=== PATIENT | female | born 1970 | race Caucasian/White ===

== ENCOUNTER 2021-11-24 07:31 | Observation (INO) | payer BC ==
[2021-11-24] MEDS ORDERED: ONDANSETRON 4 MG/2 ML VIAL ONE ×2 (07:50→08:11)
[2021-11-24] MEDS ORDERED: MORPHINE 4 MG/ML SYR ONE (07:50)
[2021-11-24] MEDS ORDERED: ASPIRIN 81 MG CHEWABLE TABLET ONE (07:50)
[2021-11-24] MEDS ORDERED: FENTANYL CITR 100 MCG/2 ML ONE (08:11)
[2021-11-24 08:23] LABS: Absolute Lymphocytes (CBC) 2.6 K/uL (0.7-4.9); Hematocrit 44.9 % (36.0-45.0); Lymphocytes % 29.1 % (15.3-44.8); MPV 6.1 fL (7.6-11.3); RBC Red Blood Cell Count 4.83 M/uL (3.86-4.86)
--- NOTE | 2021-11-24 08:27 | RAD REPORT ---
EXAM DESCRIPTION: RAD - Chest Single View - 11/24/2021 8:20 am CLINICAL HISTORY: CHEST PAINleft-side COMPARISON: None TECHNIQUE: AP portable chest image was obtained 11/24/2021 8:20 am . FINDINGS: Lungs are clear. Heart and vasculature are normal. No measurable pleural effusion and no p neumothorax. No acute bony abnormality seen. No acute aortic findings suspected. IMPRESSION: No acute cardiopulmonary process.
[2021-11-24 08:32] LABS: Protime INR 0.96
[2021-11-24 09:04] LABS: Albumin 3.7 g/dL (3.4-5.0); Bilirubin Direct 0.1 mg/dL (0-0.2); Bilirubin Total 0.3 mg/dL (0.2-1.0); Magnesium 2.1 mg/dL (1.8-2.4); Potassium 4.4 mmol/L (3.5-5.1); Protein, Total 6.8 g/dL (6.4-8.2); Troponin High Sensitivity 5.9 pg/mL (<58.9)
[2021-11-24 09:06] LABS: SARS-CoV-2 Antigen Rapid Res Negative (Negative)
--- NOTE | 2021-11-24 10:43 | ER ---
Nurse's Notes [facility] Name: Juliann Cobian Age: 51 yrs Sex: Female : 1970 Arrival Date: 11/24/2021 Time: 07:33 Bed 2 Private MD: Diagnosis: Chest pain, unspecified;Essential (primary) hypertension;Obesity, unspecified;Tobacco abuse counseling;Tobacco use Presentation: 11/24 07:45 Chief complaint: Patient states: LEFT CP SINCE WAKING AT 0520. Coronavirus screen: At bp this time, the client does not indicate any symptoms associated with coronavirus-19. Ebola Screen: No symptoms or risks identified at this time. Initial Sepsis Screen: Does the patient meet any 2 criteria? No. Patient's initial sepsis screen is negative. Does the patient have a suspected source of infection? No. Patient's initial sepsis screen is negative. Risk Assessment: Do you want to hurt yourself or someone else? Patient reports no desire to harm self or others. Onset of symptoms was November 24, 2021 at 05:20. 07:45 Method Of Arrival: Ambulatory bp 07:45 Acuity: ASHLEY 3 bp Triage Assessment: 07:45 General: Appears distressed, obese, Behavior is cooperative, appropriate for age, bp anxious. Pain: Complains of pain in left lateral anterior chest. EENT: No deficits noted. Neuro: No deficits noted. Cardiovascular: Rhythm is sinus rhythm. Respiratory: No deficits noted. GI: No signs and/or symptoms were reported involving the gastrointestinal system. : No signs and/or symptoms were reported regarding the genitourinary system. Derm: No deficits noted. Musculoskeletal: No deficits noted. - Immunization history:: Adult Immunizations up to date. - Social history:: Smoking status: Patient reports the use of cigarette tobacco products, unknown amount. - Family history:: Father has/had heart disease. - Hospitalizations: : No recent hospitalization is reported. Screenin:45 Abuse screen: Denies threats or abuse. Denies injuries from another. Nutritional bp screening: No deficits noted. Tuberculosis screening: No symptoms or risk factors identified. Fall Risk None identified. Assessment: 07:45 General: SEE TRIAGE NOTE. bp 09:45 Reassessment: No changes from previously documented assessment. Patient and/or family bp updated on plan of care and expected duration. Pain level reassessed. 10:53 Reassessment: ADMIT INITIATED. bp Vital Signs: 07:45 BP 154 / 102; Pulse 59; Resp 16; Temp 98; Pulse Ox 98% ; Weight 103.42 kg; Height 5 ft. bp 7 in. (170.18 cm); 09:45 BP 153 / 80; Pulse 63; Resp 16; Pulse Ox 99% ; bp 10:45 BP 154 / 85; Pulse 76; Resp 16; Pulse Ox 95% ; bp 07:45 Body Mass Index 35.71 (103.42 kg, 170.18 cm) bp ED Course: 07:33 Patient arrived in ED. am2 07:37 Tyrell Lance, HEATHER is Primary Nurse. bp 07:39 Reggie Gallardo MD is Attending Physician. gary 07:45 No provider procedures requiring assistance completed. Patient maintains SpO2 bp saturation greater than 95% on room air. 07:45 Patient has correct armband on for positive identification. Bed in low position. Call bp light in reach. Side rails up X2. Client placed on continuous cardiac and pulse oximetry monitoring. NIBP monitoring applied. 08:05 Inserted saline lock: 22 gauge in right wrist, using aseptic technique. bp 08:07 Triage completed. bp 10:41 Owen Moseley MD is Hospitalizing Provider. gary 10:48 CT Head Brain wo Cont In Process Unspecified. EDMS 10:56 Heath Chaney is Hospitalizing Provider. gary 17:18 IV discontinued. bp Administered Medications: 08:00 Drug: Aspirin Chewable Tablet 324 mg Route: PO; bp 08:08 CANCELLED (Other Intervention Used): morphine 4 mg IVP once over 4 mins bp 08:10 Drug: Zofran (Ondansetron) 4 mg Route: IVP; Site: right wrist; bp 09:53 Follow up: Response: No adverse reaction bp 08:10 Drug: fentaNYL (PF) 50 mcg Route: IVP; Site: right wrist; bp 09:53 Follow up: Response: Pain is decreased bp 11:00 Drug: Lovenox (enoxaparin) 1 mg/kg Route: Sub-Q; Site: right lower abdomen; bp 11:00 Drug: Pepcid (famotidine) 20 mg Route: IVP; Site: right wrist; bp 11:00 Drug: Lopressor (metoprolol TARTRATE) 50 mg Route: PO; bp Medication: 07:45 VIS not applicable for this client. bp Outcome: 10:42 Decision to Hospitalize by Provider. gary 17:18 Discharged to home ambulatory. bp 17:18 Condition: stable 17:18 Discharge instructions given to patient, Instructed on discharge instructions, follow up and referral plans. Demonstrated understanding of instructions, follow-up care. 17:19 Patient left the ED. bp Signatures: Dispatcher [employer] EDDE Reggie Gallardo MD MD cha Moreno, Amanda [facility] Tyrell Lance, HEATHER RN bp Corrections: (The following items were deleted from the chart) 10:52 07:45 BP 154 / 102; Pulse 59bpm; Resp 16bpm; Pulse Ox 98%; Temp 98F; bp bp
--- NOTE | 2021-11-24 10:44 | EDPHYS ---
Physician Documentation [facility] Name: Juliann Cobian Age: 51 yrs Sex: Female : 1970 Arrival Date: 11/24/2021 Time: 07:33 Bed 2 Private MD: ED Physician Reggie Gallardo HPI: 11/24 10:36 This 51 yrs old Female presents to ER via Ambulatory with complaints of Chest gary Pain - left side, Shoulder Pain, facial tingling, Nausea. 10:36 The patient or guardian reports chest pain that is located primarily in the substernal gary area, anterior chest wall, left. Onset: just prior to arrival, this morning. The pain radiates to left lateral anterior chest. Associated signs and symptoms: Pertinent positives: diaphoresis, lightheadedness, shortness of breath. The chest pain is described as a heaviness, a pressure. Duration: The patient or guardian reports multiple episodes, that are intermittent. Modifying factors: The symptoms are alleviated by nothing. the symptoms are aggravated by nothing. Severity of pain: At its worst the pain was moderate in the emergency department the pain has resolved and did so just prior to arrival. The patient has not experienced similar symptoms in the past. - Immunization history:: Adult Immunizations up to date. - Social history:: Smoking status: Patient reports the use of cigarette tobacco products, unknown amount. - Family history:: Father has/had heart disease. - Hospitalizations: : No recent hospitalization is reported. ROS: 10:36 Constitutional: Negative for fever, chills, and weight loss, Eyes: Negative for injury, gary pain, redness, and discharge, ENT: Negative for injury, pain, and discharge, Neck: Negative for injury, pain, and swelling, Abdomen/GI: Negative for abdominal pain, nausea, vomiting, diarrhea, and constipation, Back: Negative for injury and pain, : Negative for injury, bleeding, discharge, and swelling, MS/Extremity: Negative for injury and deformity, Skin: Negative for injury, rash, and discoloration, Neuro: Negative for headache, weakness, numbness, tingling, and seizure, Psych: Negative for depression, anxiety, suicide ideation, homicidal ideation, and hallucinations, Allergy/Immunology: Negative for hives, rash, and allergies, Endocrine: Negative for neck swelling, polydipsia, polyuria, polyphagia, and marked weight changes, Hematologic/Lymphatic: Negative for swollen nodes, abnormal bleeding, and unusual bruising. 10:36 Cardiovascular: Positive for chest pain, of the chest. 10:36 Respiratory: Positive for shortness of breath, at rest. Exam: 10:36 Constitutional: This is a well developed, well nourished patient who is awake, alert, gary and in no acute distress. Head/Face: Normocephalic, atraumatic. Eyes: Pupils equal round and reactive to light, extra-ocular motions intact. Lids and lashes normal. Conjunctiva and sclera are non-icteric and not injected. Cornea within normal limits. Periorbital areas with no swelling, redness, or edema. ENT: Nares patent. No nasal discharge, no septal abnormalities noted. Tympanic membranes are normal and external auditory canals are clear. Oropharynx with no redness, swelling, or masses, exudates, or evidence of obstruction, uvula midline. Mucous membranes moist. Neck: Trachea midline, no thyromegaly or masses palpated, and no cervical lymphadenopathy. Supple, full range of motion without nuchal rigidity, or vertebral point tenderness. No Meningismus. Chest/axilla: Normal chest wall appearance and motion. Nontender with no deformity. No lesions are appreciated. Cardiovascular: Regular rate and rhythm with a normal S1 and S2. No gallops, murmurs, or rubs. Normal PMI, no JVD. No pulse deficits. Respiratory: Lungs have equal breath sounds bilaterally, clear to auscultation and percussion. No rales, rhonchi or wheezes noted. No increased work of breathing, no retractions or nasal flaring. Abdomen/GI: Soft, non-tender, with normal bowel sounds. No distension or tympany. No guarding or rebound. No evidence of tenderness throughout. Back: No spinal tenderness. No costovertebral tenderness. Full range of motion. Skin: Warm, dry with normal turgor. Normal color with no rashes, no lesions, and no evidence of cellulitis. MS/ Extremity: Pulses equal, no cyanosis. Neurovascular intact. Full, normal range of motion. Neuro: Awake and alert, GCS 15, oriented to person, place, time, and situation. Cranial nerves II-XII grossly intact. Motor strength 5/5 in all extremities. Sensory grossly intact. Cerebellar exam normal. Normal gait. Psych: Awake, alert, with orientation to person, place and time. Behavior, mood, and affect are within normal limits. 10:36 ECG was reviewed by the Attending Physician. Vital Signs: 07:45 BP 154 / 102; Pulse 59; Resp 16; Temp 98; Pulse Ox 98% ; Weight 103.42 kg; Height 5 ft. bp 7 in. (170.18 cm); 09:45 BP 153 / 80; Pulse 63; Resp 16; Pulse Ox 99% ; bp 10:45 BP 154 / 85; Pulse 76; Resp 16; Pulse Ox 95% ; bp 07:45 Body Mass Index 35.71 (103.42 kg, 170.18 cm) bp MDM: 07:39 Patient medically screened. gary 10:39 Differential diagnosis: abnormal EKG, acute myocardial infarction, acute pericarditis, gary anxiety, coronary artery disease Cholelithiasis gastroesophageal reflux disease (GERD), hiatal hernia, pancreatitis, peptic ulcer disease, pulmonary embolus, stable angina, unstable angina. HEART Score: History: Moderately Suspicious (1), ECG: Normal (0), Age: > 45 and < 65 years (1), Risk Factors: > or = 3 Risk factors for atherosclerotic disease (2), [Hypertension] [Active Smoker] [+ Family HX] [Obesity] Troponin: < or = 1 x Normal Limit (0). The patient was given aspirin in the Emergency Department. The patient's deep vein thrombosis risk score was calculated as follows: Total Score: 0. This patient was found to be at low risk for a deep vein thrombosis by using the Well's assessment criteria. The patient's pulmonary embolism risk score was calculated as follows: Total Score: 3-6 points. This patient was found to be at moderate risk for a pulmonary embolism by using the Well's assessment criteria. VELVET Risk Score: 1 - Three or more CAD risk factors, TOTAL SCORE = 1. Data reviewed: vital signs, nurses notes, lab test result(s), EKG, radiologic studies, CT scan, plain films. Data interpreted: library monitor: rate is 63 beats/min, rhythm is regular, Pulse oximetry: on room air is 99 %. Test interpretation: by ED physician or midlevel provider: ECG, plain radiologic studies. Counseling: I had a detailed discussion with the patient and/or guardian regarding: the historical points, exam findings, and any diagnostic results supporting the discharge/admit diagnosis, the presence of at least one elevated blood pressure reading (>120/80) during this emergency department visit, lab results, radiology results, the need for further work-up and treatment in the hospital. 11/24 07:47 Order name: Basic Metabolic Panel; Complete Time: 09:54 [facility] 11/24 07:47 Order name: CBC with Diff [facility] 11/24 07:47 Order name: LFT's; Complete Time: 09:54 [facility] 11/24 07:47 Order name: Magnesium; Complete Time: 09:54 [facility] 11/24 07:47 Order name: NT PRO-BNP; Complete Time: 09:54 [facility] 11/24 07:47 Order name: PT-INR [facility] 11/24 07:47 Order name: Troponin HS; Complete Time: 09:54 [facility] 11/24 07:47 Order name: SARS RAPID; Complete Time: 09:54 [facility] 11/24 07:47 Order name: D-Dimer [facility] 11/24 08:24 Order name: CBC with Automated Diff; Complete Time: 09:54 [facility] 11/24 08:32 Order name: Protime (+INR); Complete Time: 09:54 [facility] 11/24 08:32 Order name: D-Dimer; Complete Time: 09:54 [facility] 11/24 10:36 Order name: Lipid Profile [facility] 11/24 11:26 Order name: Creatine Phosphokinase [facility] 11/24 07:47 Order name: XRAY Chest (1 view) [facility] 11/24 11:26 Order name: Magnesium [facility] 11/24 11:26 Order name: NT PRO-BNP [facility] 11/24 11:26 Order name: Phosphorus [facility] 11/24 11:26 Order name: Protime (+INR) [facility] 11/24 11:26 Order name: T4 Free [facility] 11/24 11:26 Order name: Thyroid Stimulating Hormone [facility] 11/24 11:26 Order name: Urinalysis [facility] 11/24 11:26 Order name: Basic Metabolic Panel [facility] 11/24 11:26 Order name: Basic Metabolic Panel [facility] 11/24 11:26 Order name: CBC with Automated Diff [facility] 11/24 11:26 Order name: CBC with Automated Diff [facility] 11/24 11:29 Order name: Hemoglobin A1c [facility] 11/24 11:33 Order name: Troponin High Sensitivity [facility] 11/24 11:33 Order name: Troponin High Sensitivity [facility] 11/24 11:33 Order name: Troponin High Sensitivity [facility] 11/24 07:47 Order name: EKG; Complete Time: 07:48 [facility] 11/24 07:47 Order name: Cardiac monitoring; Complete Time: 08:08 [facility] 11/24 07:47 Order name: EKG - Nurse/Tech; Complete Time: 08:08 [facility] 11/24 07:47 Order name: IV Saline Lock; Complete Time: 08:08 [facility] 11/24 07:47 Order name: Labs collected and sent; Complete Time: 08:08 [facility] 11/24 07:47 Order name: O2 Per Protocol; Complete Time: 08:08 [facility] 11/24 07:47 Order name: O2 Sat Monitoring; Complete Time: 08:08 [facility] 11/24 08:28 Order name: RAD; Complete Time: 09:54 [facility] 11/24 08:30 Order name: Labs - recollect needed: recollect green top; Complete Time: 08:47 11/24 10:35 Order name: CT Head Brain wo Cont [facility] 11/24 11:26 Order name: Heart Healthy [facility] 11/24 11:33 Order name: Echo with Doppler EDMS EC:36 Rate is 66 beats/min. Rhythm is regular. QRS [place] is Normal. ID interval is normal. QRS gary interval is normal. QT interval is normal. No Q waves. T waves are Normal. No ST changes noted. Clinical impression: Normal ECG and No evidence of ischemia. Interpreted by me. Reviewed by me. Administered Medications: 08:00 Drug: Aspirin Chewable Tablet 324 mg Route: PO; bp 08:08 CANCELLED (Other Intervention Used): morphine 4 mg IVP once over 4 mins bp 08:10 Drug: Zofran (Ondansetron) 4 mg Route: IVP; Site: right wrist; bp 09:53 Follow up: Response: No adverse reaction bp 08:10 Drug: fentaNYL (PF) 50 mcg Route: IVP; Site: right wrist; bp 09:53 Follow up: Response: Pain is decreased bp 11:00 Drug: Lovenox (enoxaparin) 1 mg/kg Route: Sub-Q; Site: right lower abdomen; bp 11:00 Drug: Pepcid (famotidine) 20 mg Route: IVP; Site: right wrist; bp 11:00 Drug: Lopressor (metoprolol TARTRATE) 50 mg Route: PO; bp Disposition Summary: 11/24/21 10:42 Hospitalization Ordered Hospitalization Status: Observation gary Location: Telemetry/MedSurg (observation) gary Condition: Fair gary Problem: new gary Symptoms: have improved gary Bed/Room Type: Standard gary Provider: Heath Chaney(11/24/21 10:56) gary Room Assignment: (11/24/21 17:10) bd Diagnosis - Chest pain, unspecified gary - Essential (primary) hypertension gary - Obesity, unspecified gary - Tobacco abuse counseling gary - Tobacco use gary Forms: - Medication Reconciliation Form gary - SBAR form gary Signatures: Dispatcher [employer] EDMS Carol Li Corey, MD MD cha Peltier, Brian RN RN bp Corrections: (The following items were deleted from the chart) 08:08 07:49 morphine 4 mg IVP once over 4 mins ordered. gary bp 10:56 10:42 Owen Moseley cha gary 16:21 10:42 gary bd 17:10 16:21 407 bd bd
--- NOTE | 2021-11-24 10:52 | RAD REPORT ---
EXAM DESCRIPTION: CT - Head Brain Wo Cont - 11/24/2021 10:46 am CLINICAL HISTORY: Headache, new or worsening COMPARISON: No comparisons TECHNIQUE: Axial 5 mm thick images of the head were obtained without IV contrast. All CT scans are performed using dose optimization technique as appropriate and may include automated exposure control or mA/KV adjustment according to patient size. FINDINGS: No intracranial hemorrhage, mass, edema or shift of mid-line structures. No acute infarcti on changes seen. No abnormal extra-axial fluid collections. No cortical edema or sulcal effacement. N o atrophy changes are present. Ventricles are normal size. Patient does appear to have some minimal w zhane matter hypodensities that could be early chronic ischemic change. This is a subtle finding with no associated mass effect. Mastoid air cells are clear. Trace amount mucosal thickening seen along the posterior floor left maxi llary sinus. No acute bony findings. IMPRESSION: No acute intracranial finding identifiable. No significant paranasal sinus abnormality.
[2021-11-24] MEDS ORDERED: METOPROLOL TAR 50 MG TAB ONE (10:55)
[2021-11-24] MEDS ORDERED: ENOXAPARIN 100 MG/ML SYR SQ ONE (10:55)
[2021-11-24] MEDS ORDERED: FAMOTIDINE 20 MG/2 ML VIAL IV ONE (10:56)
[2021-11-24] MEDS ORDERED: ONDANSETRON 4 MG/2 ML VIAL IV PRN (11:23)
[2021-11-24] MEDS ORDERED: HYDROCODONE/APAP 10/325 TAB PO PRN (11:26)
[2021-11-24] MEDS ORDERED: ACETAMINOPHEN 325 MG TABLET PO PRN (11:26)
--- NOTE | 2021-11-24 11:35 | P.HP ---
Patient History Date of Service: 11/24/21 Physical Examination - Studies Laboratory Data (last 24 hrs) 11/24/21 08:37: Sodium 138, Potassium 4.4, BUN 19 H, Creatinine 0.77, Glucose 123 H, Magnesium 2.1, Total Bilirubin 0.3, AST 12 L, ALT 23, Alkaline Phosphatase 64 11/24/21 08:00: PT 10.6, INR 0.96 11/24/21 08:00: WBC 9.00, Hgb 15.0, Hct 44.9, Plt Count 314 Assessment and Plan - Advance Directives Does patient have a Living Will: No Does patient have a Durable POA for Healthcare: No
[2021-11-24 13:30] VITALS: O2SAT 99
[2021-11-24 14:07] LABS: Protime INR 1.11
[2021-11-24 14:16] LABS: Magnesium 1.9 mg/dL (1.8-2.4); Thyroid Stimulating Hormone 1.9 uIU/mL (0.360-3.740)
--- NOTE | 2021-11-24 17:07 | P.SSS ---
Patient History Date of Service: 11/24/21 History of Present Illness: Patient is a 51-year-old female with a past medical history significant for nicotine dependence, chronic pain syndrome, obesity, hypertension who presents with complaint of chest pain that has been ongoing intermittently for quite some time. Patient reported that she woke up this morning and started having chest pain in the substernal chest area. Patient rated pain as 7/10 in severity and described pain as tightness in quality. Patient reported associated signs and symptoms of diaphoresis, nausea, headache, cough and blurry vision. Patient denies any other signs and symptoms. Symptoms are aggravated or relieved by nothing. Patient decided to present to the hospital due to worsening symptoms. Allergies ampicillin Allergy (Verified 11/24/21 11:50) UNK clarithromycin Allergy (Verified 11/24/21 11:50) UNK morphine Allergy (Verified 11/24/21 11:50) UNK - Past Medical/Surgical History -: Nicotine dependence -: Obesity -: Chronic pain syndrome -: hypertension -: Neck/back surgeries - Family History Mother -: Cancer Father -: Heart disease - Social History Smoking Status: Current every day smoker Counseled patient to stop smoking for: less than 10 minutes Smoking therapy provided: Yes Patient receptive to therapy: Yes Alcohol use: Yes CD- Drugs: No Caffeine use: Yes Place of Residence: Home Review of Systems General: Sweats Eyes: Other (Blurry vision ) ENT: Unremarkable Respiratory: Cough Cardiovascular: Chest Pain, Other (Dizziness ) Gastrointestinal: Nausea Genitourinary: Unremarkable Musculoskeletal: Neck Pain, Back Pain Integumentary: Unremarkable Neurological: Other (Headache ) Lymphatics: Unremarkable Physical Examination - Physical Exam General: Alert, In no apparent distress, Oriented x3 HEENT: Atraumatic, PERRLA, Mucous membr. moist/pink, EOMI, Sclerae nonicteric Neck: Supple, 2+ carotid pulse no bruit, No LAD, Without JVD or thyroid abnormality Respiratory: Clear to auscultation bilaterally, Normal air movement Cardiovascular: No edema, Regular rate/rhythm, Normal S1 S2 Capillary refill: <2 Seconds Gastrointestinal: Normal bowel sounds, Soft and benign, No tenderness Musculoskeletal: No clubbing, No swelling, No tenderness Integumentary: No rashes, No significant lesion Neurological: Normal gait, Normal speech, Normal strength at 5/5 x4 extr, Normal tone, Normal affect Lymphatics: No axilla or inguinal lymphadenopathy - Studies Laboratory Data (last 24 hrs) 11/24/21 08:37: Sodium 138, Potassium 4.4, BUN 19 H, Creatinine 0.77, Glucose 123 H, Magnesium 2.1, Total Bilirubin 0.3, AST 12 L, ALT 23, Alkaline Phosphatase 64 11/24/21 08:00: PT 10.6, INR 0.96 11/24/21 08:00: WBC 9.00, Hgb 15.0, Hct 44.9, Plt Count 314 Treatment Summary: Patient is a 51-year-old female with past medical history significant for hypertension, obesity, nicotine dependence who presented with complaint of chest pain. Serial troponins was ordered and trended. Residence Counselor was consulted and echocardiogram ordered. Patient was advised on smoking cessation. Patient refused nicotine patch. Patient's blood pressure was adequately managed. Patient was placed on Tylenol for headache as well as antiemetics for nausea. Patient was seen by marketing services manager and cardiology indicated that patient can be discharged home once the second troponin level was negative. Second troponin level was negative and less than the previous level. Residence Counselor cleared patient for discharge and indicated that patient should follow up outpatient with him for a stress test. Patient instructed to follow-up with her PCP and marketing services manager. Patient verbalized understand discharge instructions and was discharged in stable condition. - Disposition Discharge Date: 11/24/21 Disposition: ROUTINE DISCHARGE Condition: GOOD Consultations: Cardiology Diet: Heart Heal Activity: Fall precautions Physician Review: Patient Assessed, Agree with Above Assessment and Plan Critical Care: No Time Spent Managing Pts Care (In Minutes): 50
[2021-11-24 17:28] VITALS: TEMP 98
[2021-11-24 17:39] VITALS: BP 154/85
--- NOTE | 2021-11-24 18:31 | CON ---
Date of Consultation: 11/24/2021 Reason For Consultation: Chest pain. History Of Present Illness: This is a 51-year-old female, presented to the emergency room with chest pain. It is on the left side, that goes to the left upper extremity and increased with movements. Upon arrival, pain was 8/10 and then gradually improved. She does have history of hypertension and s mokes on a regular basis, but no other medical problems. At the time of evaluation, pain was very mi ld, it is reproducible to a point by putting pressure on the chest wall muscles. Denies having any n ausea, vomiting, diarrhea, or diaphoresis. Past Medical History: Hypertension. Medications: Refer to reconciliation sheet for detailed list. Allergies: PENICILLIN, CLARITHROMYCIN, AND MORPHINE. Family History: No premature coronary artery disease or cancer. Social History: Smokes. Does not drink or use any drugs. Review of Systems: All systems reviewed and they were negative except for what mentioned in HPI. Physical Examination: Vital Signs: Reviewed. Head and Neck: Pupils are equal, reactive to light. Intact eye movements. No JVD. No cervical lym phadenopathy. Neck is supple. Thyroid is not enlarged. Lungs: Clear to auscultation bilaterally. No rhonchi, wheezing, or crackles. No accessory muscle u se. Heart: Regular rate and rhythm. No extra sounds. Abdomen: Soft, nontender. Bowel sounds positive. No organomegaly. No masses or hernia. No rigidi ty or rebound. Extremities: No edema, clubbing, or cyanosis. Intact pulses. Skin: No rash. Neurologic: Alert, awake, oriented x3. No acute focal deficits appreciated. Investigations: EKG; no acute specific abnormalities. Hemoglobin is 15. The D-dimer is 409 and BUN is 19, creatinine 0.77. Troponin 2 sets with 6 hours apart were totally negative. Assessment And Recommendations: 1.Chest pain that is atypical. Cardiac enzymes are negative. Myocardial infarction was ruled out. Echocardiogram was done. Ejection fraction is normal. No wall motion abnormalities. From Cardiolo gy standpoint, the patient can be released and to follow up with me in the office as an outpatient. We will plan for an exercise stress test to be done at that time. 2.Hypertension. Blood pressure is controlled. 3.Smoker. The patient was counseled against smoking and encouraged to quit. SR/MODL Voice ID: [id number] Report ID: [id number]
[2021-11-24] MEDS ORDERED: ATORVASTATIN 40 MG TAB PO SCH (21:00)
[2021-11-25] MEDS ORDERED: ASPIRIN 325 MG TAB PO SCH (09:00)
[2021-11-25] MEDS ORDERED: ENOXAPARIN 40 MG/0.4 ML SQ SCH (09:00)
--- NOTE | 2021-11-25 09:04 | ECHO ---
HEIGHT: 5 ft 7 in WEIGHT: 228 lb 0 oz DATE OF STUDY: 11/24/[address]: Kasi Hanna 2-DIMENSIONAL: YES M.MODE: YES DOPPLER: YES COLOR FLOW: YES TDS: NO PORTABLE: YES DEFINITY: NO BUBBLE STUDY: NO DIAGNOSIS: CHEST PAIN CARDIAC HISTORY: CATHERIZATION: NO SURGERY: NO PROSTHETIC VALVE: NO PACEMAKER: NO MEASUREMENTS (cm) DIASTOLIC (NORMALS) SYSTOLIC (NORMALS) IVSd 0.9 (0.6-1.2) LA Diam 2.2 (1.9-4.0) LVEF 55-60% LVIDd 4.5 (3.5-5.7) LVIDs 3.0 (2.0-3.5) %FS 33% LVPWd 0.9 (0.6-1.2) Ao Diam 2.1 (2.0-3.7) 2 DIMENSIONAL ASSESSMENT: RIGHT ATRIUM: NORMAL LEFT ATRIUM: NORMAL RIGHT VENTRICLE: NORMAL LEFT VENTRICLE: NORMAL TRICUSPID VALVE: MILD TRICUSPID REGURGITATION MITRAL VALVE: MILD MITRAL REGURGITATION PULMONIC VALVE: NORMAL AORTIC VALVE: NORMAL PERICARDIAL EFFUSION: NONE AORTIC ROOT: NORMAL LEFT VENTRICULAR WALL MOTION: NORMAL. DOPPLER/COLOR FLOW: SEE BELOW. COMMENTS: NORMAL LEFT VENTRICULAR EJECTION FRACTION 55-60%. NORMAL WALL MOTION. DIASTOLIC DYSFUNCTION. MILD MITRAL REGURGITATION. MILD TRICUSPID REGURGITATION. TECHNOLOGIST: EMMETT LALA
--- NOTE | 2021-11-25 16:18 | EKG ---
Test Date: 2021-11-24 Test Time: 07:46:56 Asw Specialist: BP MEASUREMENT RESULTS: Intervals: Rate: 56 IN: 144 QRSD: 84 QT: 454 QTc: 438 [place]: P: 41 IN: 144 QRS: -8 T: 45 INTERPRETIVE STATEMENTS: Sinus bradycardia Otherwise normal ECG Compared to ECG 01/18/2007 13:54:01 Sinus rhythm no longer present Electronically Signed On 11-25-21 16:15:41 CDT by Martin Gallardo
== END 2021-11-24 17:20 | disposition home or self-care (01) ==
LOC: ER 07:31 → ERHOLD 11:20
PROVIDERS: ADMIT Internal Medicine; ATTEND Internal Medicine
DX: R07.9 Chest pain, unspecified (principal); I10 Essential (primary) hypertension; E66.9 Obesity, unspecified; F17.210 Nicotine dependence, cigarettes, uncomplicated; Z71.6 Tobacco abuse counseling; Z20.822 Contact with and (suspected) exposure to COVID-19
CPT/HCPCS: 93005; 93306; 85025; 80048; 36415; 83735 ×2; 82550; 84100; 85610 ×2; 80061; 85379; 80076; 84443; 83036; 84484 ×2; 84439; 83880 ×2; 70450; 71045; 96375; 96372; 96374; 99284; 87811; J3010; J1650; J2405 ×2; G0378 ×2

== ENCOUNTER 2023-05-29 08:09 | Emergency (ER) | payer BC ==
--- OUTSIDE RECORDS SUMMARY | 2023-05-29 08:12 | XMS REPORT | Continuity of Care Document ---
Author Name Unknown Address [address] [facility] [address] th[address] Address [address] [facility] [address] [place] [address] Care Team Providers Care Field Administrator Name Role Phone ALEKSEY HAJI Primary Care Physician Unavailab le RADIOLOGY Attending Clinician Unavailable Radiology Attending Clinician Unavailable Doctor Unassigned, [place] Attending Clinician U navailable ALEKSEY HAJI Admitting Clinician Unavailable Payers Payer Name Policy Type Policy Number Effective Date Expirati on Date Source [facility] - OUT OF STATE [id number] 2021 00:00:00 Allergies, Adverse Reactions, Alerts Allergy Name Allergy Type Status Severity Reaction(s) Onset Date Inactive Date Treating Clinician Comments Source NO KNOWN ALLERGIE S Drug Class Active [facility] Social History Social Habit Start Date Stop Date Quantity Comments Source Sexual orientation [facility] Sex Assigned At 1970 00:00:00 1970 00:00:00 [facility] Smoking Status Start Date Stop Date Source Tobacco smoking consumption unknown [facility] Procedures Procedure Date / Time Performed Performing Clinician Source BI SCREENING TOMOSYNTHESIS BILATERAL 2022-12-15 15:54:24 Aleksey Haji [facility] ASSIGNMENT OF BENEFITS 2022-12-15 15:05:35 Docto r Unassigned, [place] [facility] XR CHEST 2 VW 2022-12-01 17:35:41 Requisition, Paper [facility] ASSIGNMENT OF BENEFITS 2021-11-23 16:29:57 Docto r Unassigned, [place] [facility] Encounters Start Date/Time End Date/Time Encounter Type Admission Type Attending [facility] Facility Care Department Encounter ID Source 2022-12-15 09:06:13 2022-12-15 23:59:00 Outpatient R RADIOLOGY [facility] [id number] [facility] 2022-12-15 09:06:13 2022-12-15 23:59:00 Hospital Encounter Radiology [facility] [id number] [facility] 2022-12-15 00:00:00 2022-12-15 00:00:00 Orders Only Doctor Unassigned, [place] [facility] [id number] [facility] 2022-12-01 12:11:47 2022-12-01 23:59:00 Outpatient R RADIOLOGY [facility] [id number] [facility] 2022-12-01 12:11:47 2022-12-01 23:59:00 Hospital Encounter Radiology [facility] [id number] [facility] 2021-11-23 11:34:42 2021-11-23 23:59:00 Outpatient R RADIOLOGY [facility] [id number] [facility] 2021-11-23 11:30:00 2021-11-23 23:59:00 Hospital Encounter Radiology [facility] [id number] [facility] 2021-11-23 00:00:00 2021-11-23 00:00:00 Orders Only Doctor Unassigned, [place] [facility] [id number] [facility]
[2023-05-29] MEDS ORDERED: ASPIRIN EC 81 MG TAB PO ONE (08:55)
[2023-05-29] MEDS ORDERED: KETOROLAC 30 MG/ML INJ ONE (08:55)
[2023-05-29 09:15] LABS: Absolute Basophils 0.1 K/uL (0-0.5); Absolute Eosinophils 0.2 K/uL (0-0.5); Absolute Lymphocytes (CBC) 2.2 K/uL (0.7-4.9); Absolute Monocytes 0.4 K/uL (0.1-1.3); Absolute Neutrophil 4.9 K/uL (1.8-8.0); Basophils % 1.1 % (0-1.3); Eosinophils % 3.1 % (0-4.4); Hematocrit 43.5 % (36.0-45.0); Hemoglobin 14.8 g/dL (12.0-15.0); Lymphocytes % 28.2 % (15.3-44.8); MCH 31.7 pg (27.0-35.0); MCHC 33.9 g/dL (32.0-36.0); MCV 93.5 fL (80-100); MPV 6.3 fL (7.6-11.3); Neutrophils % 62.6 % (41.7-73.7); Platelets 289 thou/uL (152-406); RBC Red Blood Cell Count 4.65 M/uL (3.86-4.86); Red Cell Distribution Width 13.9 % (12.1-15.2)
[2023-05-29 10:26] LABS: Anion Gap 5.8 mEq/L (5.0-15.0); Potassium 3.8 mEq/L (3.5-5.1); Troponin High Sensitivity 4.5 pg/mL (<58.9)
--- NOTE | 2023-05-29 11:15 | RAD REPORT ---
[facility] 9[facility]22 am CLINICAL HISTORY: CHEST PAIN COMPARISON: Chest Single View dated 11/24/2021 TECHNIQUE: Portable AP view of the chest. FINDINGS: The lungs are clear. No pneumothorax or effusion. The cardiomediastinal contours are unre markable. IMPRESSION: No acute cardiopulmonary process.
--- NOTE | 2023-05-29 11:34 | EDPHYS ---
Physician Documentation [facility] Name: Juliann Cobian Age: 52 yrs Sex: Female : 1970 Arrival Date: 05/29/2023 Time: 08:09 Bed 8 Private MD: ED Physician Ramon Rose HPI: 05/28 08:22 This 52 yrs old Female presents to ER via Unassigned with complaints of Chest Pain, ms3 Headache. 08:22 52-year-old female with past medical history of hypertension presents to the emergency ms3 department for left-sided chest pain that is been ongoing for months. Patient states this morning the pain radiated to her head and left shoulder. Patient states her pain is a 5/10. After taking baby aspirin at 4 AM her pain improved. Patient states her blood pressure decreased after using her essential oils. 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 - Infectious Disease History:: Denies. - Social history:: Smoking status: Patient denies any tobacco usage or history of. ROS: 08:22 Constitutional: Negative for fever, and chills. Neck: Negative for injury, pain, and ms3 swelling, 08:22 Respiratory: Negative for shortness of breath, cough, wheezing, and pleuritic chest pain, MS/Extremity: Negative for injury and deformity, Skin: Negative for injury, rash, and discoloration, 08:22 Cardiovascular: Positive for chest pain, Exam: 08:22 Constitutional: This is a well developed, well nourished patient who is awake, alert, ms3 and in no acute distress. Head/Face: Normocephalic, atraumatic. Neck: Trachea midline, no cervical lymphadenopathy. Supple, full range of motion without nuchal rigidity, or vertebral point tenderness. No Meningismus. Chest/axilla: Normal chest wall appearance and motion. Nontender with no deformity. Cardiovascular: Regular rate and rhythm with a normal S1 and S2. No gallops, murmurs, or rubs. Normal PMI, no JVD. No pulse deficits. Respiratory: Lungs have equal breath sounds bilaterally, clear to auscultation and percussion. No rales, rhonchi or wheezes noted. No increased work of breathing, no retractions or nasal flaring. Abdomen/GI: Soft, non-tender, with normal bowel sounds. No distension or tympany. No guarding or rebound. No evidence of tenderness throughout. Skin: Warm, dry with normal turgor. Normal color with no rashes, no lesions, and no evidence of cellulitis. MS/ Extremity: Pulses equal, no cyanosis. Neurovascular intact. Full, normal range of motion. 08:57 ECG was reviewed by the Attending Physician. ms3 Vital Signs: 08:20 BP 155 / 101; Pulse 72; Resp 18 S; Temp 97.8(TE); Pulse Ox 99% on R/A; Pain 6/10; aa5 08:51 BP 164 / 77; Pulse 61; Resp 18; Pulse Ox 100% on R/A; Pain 8/10; ld1 09:53 BP 164 / 94; Pulse 57; Resp 18; Pulse Ox 99% on R/A; ld1 11:23 BP 153 / 79; Pulse 65; Resp 16; Pulse Ox 97% on R/A; mb9 08:20 Pain Scale: Adult aa5 08:51 Pain Scale: Adult ld1 MDM: 08:22 Differential diagnosis: abnormal EKG, acute myocardial infarction, coronary artery ms3 disease chest wall pain. 08:38 Patient medically screened. ms3 20:06 HEART Score: History: Slightly Suspicious (0), ECG: Normal (0), Age: > 45 and < 65 ms3 years (1), Risk Factors: 1 or 2 risk factors (1), Troponin: < or = 1 x Normal Limit (0), Total Score = 2. The patient was given aspirin in the Emergency Department. Data reviewed: vital signs, nurses notes, lab test result(s), EKG, radiologic studies, and as a result, I will discharge patient. I considered the following discharge prescriptions or medication management in the emergency department Medications were administered in the Emergency Department. See MAR. Independent interpretation of the following test(s) in the Emergency Department EKG: See my EKG interpretation above. Counseling: I had a detailed discussion with the patient and/or guardian regarding the historical points, exam findings, and any diagnostic results supporting the discharge/admit diagnosis, lab results, radiology results, the need for outpatient follow up, to return to the emergency department if symptoms worsen or persist or if there are any questions or concerns that arise at home. Special discussion: Based on the patient's history, exam, and Dx evaluation, there is no indication for emergent intervention or inpatient Tx. It is understood by the patient/guardian that if the Sx's persist or worsen they need to return immediately for re-evaluation. ED course: Discussed labs, EKG, CXR with patient and her . Patient to follow up with Cardiology in 2-3 days. Patient understands/ agrees with plan. All questions answered. Return precautions discussed to include shortness of breath, lightheartedness, worsening symptoms, or any other concerns. On re-evaluation patient is improved, in nad, non-toxic, appearing, speaking full sentences, ambulatory in the ED.. 05/28 08:15 Order name: Basic Metabolic Panel; Complete Time: 10:27 ms3 05/28 08:15 Order name: CBC with Diff; Complete Time: 10:13 ms3 05/28 08:15 Order name: Troponin HS; Complete Time: 10:27 ms3 05/28 08:15 Order name: XRAY Chest (1 view); Complete Time: 11:25 ms3 05/28 08:15 Order name: Cardiac monitoring; Complete Time: 08:51 ms3 05/28 08:15 Order name: EKG - Nurse/Tech; Complete Time: 08:51 ms3 05/28 08:15 Order name: IV Saline Lock; Complete Time: 09:39 ms3 05/28 08:15 Order name: Labs collected and sent; Complete Time: 09:39 ms3 05/28 08:15 Order name: O2 Per Protocol; Complete Time: 08:15 ms3 05/28 08:15 Order name: O2 Sat Monitoring; Complete Time: 08:15 ms3 05/28 09:18 Order name: Labs - recollect needed: green top; Complete Time: 09:56 bd EC:57 Rate is 60 beats/min. Rhythm is regular. QRS [place] is Normal. HI interval is normal. QRS ms3 interval is normal. Clinical impression: Normal ECG. Interpreted by me. Reviewed by me. Administered Medications: : Drug: Aspirin PO Chewable Tablet 324 mg PO once; 81 mg tablets x 4 Route: PO; ld1 09:22 Drug: Ketorolac IVP 10 mg 10 mg IVP once Route: IVP; Site: right hand; ld1 Disposition Summary: 05/29/23 11:34 Discharge Ordered Notes: Location: Home ms3 Condition: Stable ms3 Diagnosis - Chest pain, unspecified ms3 Followup: ms3 - With: Martin Gallardo MD - When: 2 - 3 days - Reason: Recheck today's complaints Discharge Instructions: - Discharge Summary Sheet ms3 - Nonspecific Chest Pain, Adult ms3 Forms: - Medication Reconciliation Form ms3 - Thank You Letter ms3 - Antibiotic Education ms3 - Prescription Opioid Use ms3 - Patient Portal Instructions ms3 - Leadership Thank You Letter ms3 Signatures: Dispatcher [employer] EDMS Carol Li Audri, RN RN aa5 Ramon Rose, DO ms3 Saskia Rose RN RN ld1 Corrections: (The following items were deleted from the chart) 08:15 08:15 BASIC METABOLIC PANEL+C.LAB.BRZ ordered. EDMS EDMS 08:15 08:15 CBC+H.LAB.BRZ ordered. EDMS EDMS 08:15 08:15 Troponin High Sensitivity+C.LAB.BRZ ordered. EDMS EDMS 08:15 08:15 Chest Single View+RAD.RAD.BRZ ordered. EDMS EDMS 08:31 08:22 Constitutional: This is a well developed, well nourished patient who is awake, ms3 alert, and in no acute distress. Head/Face: Normocephalic, atraumatic. Neck: Trachea midline, no cervical lymphadenopathy. Supple, full range of motion without nuchal rigidity, or vertebral point tenderness. No Meningismus. Chest/axilla: Normal chest wall appearance and motion. Nontender with no deformity. Cardiovascular: Regular rate and rhythm with a normal S1 and S2. No gallops, murmurs, or rubs. Normal PMI, no JVD. No pulse deficits. Respiratory: Lungs have equal breath sounds bilaterally, clear to auscultation and percussion. No rales, rhonchi or wheezes noted. No increased work of breathing, no retractions or nasal flaring. Abdomen/GI: Soft, non-tender, with normal bowel sounds. No distension or tympany. No guarding or rebound. No evidence of tenderness throughout. Skin: Warm, dry with normal turgor. Normal color with no rashes, no lesions, and no evidence of cellulitis. MS/ Extremity: Pulses equal, no cyanosis. Neurovascular intact. Full, normal range of motion. ms3
--- NOTE | 2023-05-29 11:34 | ER ---
Nurse's Notes [facility] Name: Juliann Cobian Age: 52 yrs Sex: Female : 1970 Arrival Date: 05/29/2023 Time: 08:09 Bed 8 Private MD: Diagnosis: Chest pain, unspecified Presentation: 05/28 08:14 Chief complaint: Chief complaint: Patient states: "I've been having chest pain for aa5 months radiating to my (left) shoulder blade but today it's radiating to my arm pit, my shoulder, and my head". Reports taking ASA 81mg PO at 0400. 08:20 Coronavirus screen: At this time, the client does not indicate any symptoms associated aa5 with coronavirus-19. Ebola Screen: Patient denies travel to an Ebola-affected area in the 21 days before illness onset. Initial Sepsis Screen: Does the patient meet any 2 criteria? No. Patient's initial sepsis screen is negative. Does the patient have a suspected source of infection? No. Patient's initial sepsis screen is negative. Risk Assessment: Do you want to hurt yourself or someone else? Patient reports no desire to harm self or others. Onset of symptoms was 2023. 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 - Infectious Disease History:: Denies. - Social history:: Smoking status: Patient denies any tobacco usage or history of. Screenin:[facility] ED Fall Risk Assessment (Adult) History of falling in the last 3 months, ld1 including since admission No falls in past 3 months (0 pts). Abuse screen: Denies threats or abuse. Denies injuries from another. Nutritional screening: No deficits noted. Tuberculosis screening: No symptoms or risk factors identified. Assessment: 08:51 General: Appears in no apparent distress. uncomfortable, Behavior is cooperative, ld1 anxious. Pain: Complains of pain in anterior aspect of left upper chest, left lateral posterior chest, left breast and epigastric area Pain does not radiate. Pain currently is 8 out of 10 on a pain scale. Quality of pain is described as throbbing, Pain began gradually, 1 month Is continuous. Neuro: Level of Consciousness is awake, alert, obeys commands, Oriented to person, place, time, situation. Cardiovascular: Capillary refill < 3 seconds Patient's skin is warm and dry. Rhythm is sinus rhythm. Respiratory: Airway is patent Respiratory effort is even, unlabored. GI: Abdomen is round non-distended. GI: Reports epigastric pain. : No signs and/or symptoms were reported regarding the genitourinary system. EENT: No signs and/or symptoms were reported regarding the EENT system. Derm: No signs and/or symptoms reported regarding the dermatologic system. 11:43 Reassessment: Patient appears in no apparent distress at this time. No changes from mb9 previously documented assessment. Patient and/or family updated on plan of care and expected duration. Pain level reassessed. Patient is alert, oriented x 3, equal unlabored respirations, skin warm/dry/pink. Vital Signs: 08:20 BP 155 / 101; Pulse 72; Resp 18 S; Temp 97.8(TE); Pulse Ox 99% on R/A; Pain 6/10; aa5 08:51 BP 164 / 77; Pulse 61; Resp 18; Pulse Ox 100% on R/A; Pain 8/10; ld1 09:53 BP 164 / 94; Pulse 57; Resp 18; Pulse Ox 99% on R/A; ld1 11:23 BP 153 / 79; Pulse 65; Resp 16; Pulse Ox 97% on R/A; mb9 08:20 Pain Scale: Adult aa5 08:51 Pain Scale: Adult ld1 ED Course: 08:12 Patient arrived in ED. mg5 08:13 Ramon Rose DO is Attending Physician. ms3 08:14 Arm band placed on. aa5 08:15 Saskia Rose, RN is Primary Nurse. ld1 08:25 Triage completed. aa5 08:51 Patient has correct armband on for positive identification. Placed in gown. Bed in low ld1 position. Call light in reach. Side rails up X2. ekg monitor on. Pulse ox on. NIBP on. Door closed. Noise minimized. Warm blanket given. 08:51 Missed attempt(s): 22 gauge in right forearm. ld1 08:51 No provider procedures requiring assistance completed. O2 via RA. ld1 09:23 XRAY Chest (1 view) In Process Unspecified. EDMS 10:00 Provided Education on: press call light if needing anything. mb9 11:33 Martin Gallardo MD is Referral Physician. ms3 11:34 IV discontinued, intact, bleeding controlled, No redness/swelling at site. Pressure mb9 dressing applied. Administered Medications: 09:22 Drug: Aspirin PO Chewable Tablet 324 mg PO once; 81 mg tablets x 4 Route: PO; ld1 09:22 Drug: Ketorolac IVP 10 mg 10 mg IVP once Route: IVP; Site: right hand; ld1 Medication: 08:51 VIS not applicable for this client. ld1 Outcome: 11:34 Discharge ordered by . ms3 11:43 Discharged to home ambulatory, mb9 11:43 Condition: stable 11:43 Discharge instructions given to patient, Instructed on discharge instructions, follow up and referral plans. Demonstrated understanding of instructions, follow-up care, 11:43 Patient left the ED. mb9 Signatures: Dispatcher [employer] EDMS Deana Mckinnon RN RN aa5 Ramon Rose DO DO ms3 Saskia Rose RN RN ld1 Claudia Eugene RN RN mb9 Bella Hoffman mg5 Corrections: (The following items were deleted from the chart) 08:25 08:14 Chief complaint: aa5 aa5
[2023-05-29 11:57] VITALS: BP 153/79; TEMP 97.8; O2SAT 97
== END 2023-05-29 11:43 | disposition home or self-care (01) ==
LOC: ER 08:09
DX: R07.9 Chest pain, unspecified (principal); I10 Essential (primary) hypertension; Z88.1 Allergy status to other antibiotic agents; Z88.5 Allergy status to narcotic agent
CPT/HCPCS: 36415; 71045; 80048; 84484; 85025; 93005; 96374; 99285

== ENCOUNTER 2023-10-23 14:06 | Emergency (ER) | payer BC ==
--- OUTSIDE RECORDS SUMMARY | 2023-10-23 14:09 | XMS REPORT | Continuity of Care Document ---
Author Name Unknown Address [address] [facility] [address] thconnect Address [address] [facility] [address] [place] [address] Care Team Providers Care Supervisor Type Disk Quality Control Name Role Phone ALEKSEY HERRERA Primary Care Physician ELIEZER Lopez Attending Clinician ELIEZER Lopez Attending Clinician Unavailab buck RADIOLOGY Attending Clinician Unavailable Radiology Attending Clinician Unavailable Doctor Unassigned, [place] Attending Clinician U navailable ALEKSEY HERRERA Admitting Clinician Unavailable Payers Payer Name Policy Type Policy Number Effective Date Expirati on Date Source [facility] STATE [id number] 2021 00:00:00 Allergies, Adverse Reactions, Alerts Allergy Name Allergy Type Status Severity Reaction(s) Onset Date Inactive Date Treating Clinician Comments Source NO KNOWN ALLERGIE S Drug Class Active [facility] Social History Social Habit Start Date Stop Date Quantity Comments Source Sexual orientation [facility] Sex Assigned At 1970 00:00:00 1970 00:00:00 [facility] Smoking Status Start Date Stop Date Source Tobacco smoking consumption unknown [facility] Procedures Procedure Date / Time Performed Performing Clinician Source BI SCREENING TOMOSYNTHESIS BILATERAL 2022-12-15 15:54:24 Aleksey Herrera [facility] ASSIGNMENT OF BENEFITS 2022-12-15 15:05:35 Docto r Unassigned, [place] [facility] XR CHEST 2 VW 2022-12-01 17:35:41 Requisition, Paper [facility] ASSIGNMENT OF BENEFITS 2021-11-23 16:29:57 Docto r Unassigned, [place] [facility] Encounters Start Date/Time End Date/Time Encounter Type Admission Type Attending Clinicians Care Facility Care Department Encounter ID Source 2023-10-16 11:00:00 2023-10-16 11:00:00 Outpatient R EBEN MOHANLucia MOHAN ELIEZER [facility] [id number] [facility] 2022-12-15 09:06:13 2022-12-15 23:59:00 Outpatient R RADIOLOGY [facility] [id number] [facility] 2022-12-15 09:06:13 2022-12-15 23:59:00 Hospital Encounter Radiology [facility] [id number] [facility] 2022-12-15 00:00:00 2022-12-15 00:00:00 Orders Only Doctor Unassigned, [place] [facility] [id number] [facility] 2022-12-01 12:11:47 2022-12-01 23:59:00 Outpatient R RADIOLOGY [facility] [id number] [facility] 2022-12-01 12:11:47 2022-12-01 23:59:00 Hospital Encounter Radiology [facility] [id number] [facility] 2021-11-23 11:34:42 2021-11-23 23:59:00 Outpatient R RADIOLOGY [facility] [id number] [facility] 2021-11-23 11:30:00 2021-11-23 23:59:00 Hospital Encounter Radiology [facility] [id number] [facility] 2021-11-23 00:00:00 2021-11-23 00:00:00 Orders Only Doctor Unassigned, [place] [facility] [id number] [facility]
[2023-10-23] MEDS ORDERED: HYDROCODONE/APAP 5/325 MG TAB ONE (15:04)
[2023-10-23] MEDS ORDERED: KETOROLAC 30 MG/ML INJ ONE (15:04)
--- NOTE | 2023-10-23 16:23 | EDPHYS ---
Physician Documentation [facility] Name: Juliann Cobian Age: 53 yrs Sex: Female : 1970 Arrival Date: 10/23/2023 Time: 14:06 Bed 15 Private MD: ED Physician Nancy Marcos HPI: 10/22 16:42 This 53 yrs old Female presents to ER via Ambulatory with complaints of Back gb1 Pain. 16:42 53-year-old female with history of cervical disc disease status post cervical gb1 fusion as well as lumbar fusion here with radiating pain from her neck all the way down to her right leg. Patient states that she denies any trauma and she has been having pain for 3 days. Pain is shooting in nature and sharp.. [employer] INSIDE: 16:41 LMP N/A - control method, Not me1 Historical: - Allergies: 14:27 Ampicillin; cm10 14:27 Morphine; cm10 - PMHx: 14:27 Hypertensive disorder; cm10 - PSHx: 14:27 Back fusion; Neck Fusion; Tonsillectomy; Total abdominal hysterectomy; section;cm10 - Immunization history:: Adult Immunizations up to date. - Infectious Disease History:: Denies. - Social history:: Smoking status: Patient reports the use of cigarette tobacco products, smokes one-half pack cigarettes per day. Exam: 16:42 Constitutional: This is a well developed, well nourished patient who is awake, alert, gb1 and in no acute distress. Head/Face: Normocephalic, atraumatic. Eyes: Pupils equal round and reactive to light, extra-ocular motions intact. Lids and lashes normal. Conjunctiva and sclera are non-icteric and not injected. Cornea within normal limits. Periorbital areas with no swelling, redness, or edema. ENT: Nares patent. No nasal discharge, no septal abnormalities noted. Tympanic membranes are normal and external auditory canals are clear. Oropharynx with no redness, swelling, or masses, exudates, or evidence of obstruction, uvula midline. Mucous membranes moist. Neck: Trachea midline, no thyromegaly or masses palpated, and no cervical lymphadenopathy. Supple, full range of motion without nuchal rigidity, or vertebral point tenderness. No Meningismus. Chest/axilla: Normal chest wall appearance and motion. Nontender with no deformity. No lesions are appreciated. Cardiovascular: Regular rate and rhythm with a normal S1 and S2. No gallops, murmurs, or rubs. Normal PMI, no JVD. No pulse deficits. Respiratory: Lungs have equal breath sounds bilaterally, clear to auscultation and percussion. No rales, rhonchi or wheezes noted. No increased work of breathing, no retractions or nasal flaring. Abdomen/GI: Soft, non-tender, with normal bowel sounds. No distension or tympany. No guarding or rebound. No evidence of tenderness throughout. Back: No spinal tenderness. No costovertebral tenderness. Full range of motion. Skin: Warm, dry with normal turgor. Normal color with no rashes, no lesions, and no evidence of cellulitis. MS/ Extremity: Pulses equal, no cyanosis. Neurovascular intact. Full, normal range of motion. Neuro: Awake and alert, GCS 15, oriented to person, place, time, and situation. Cranial nerves II-XII grossly intact. Motor strength 5/5 in all extremities. Sensory grossly intact. Cerebellar exam normal. Normal gait. Vital Signs: 14:26 BP 142 / 94; Pulse 79; Resp 16; Temp 96.9(IR); Pulse Ox 98% on R/A; Weight 108.41 kg; cm10 Height 5 ft. 7 in. ; Pain 10/10; 15:00 BP 120 / 73; Pulse 69; Resp 16; Pulse Ox 98% ; me1 16:00 BP 140 / 77; Pulse 74; Resp 15; Temp 98.1; Pulse Ox 99% ; me1 14:26 Body Mass Index 37.43 (108.41 kg, 170.18 cm) cm10 14:26 Pain Scale: Adult cm10 MDM: 14:30 Patient medically screened. gb1 16:42 Differential diagnosis: chronic back pain, Obesity Osteoarthritis Osteomalacia ruptured gb1 disc. ED course: 51-year-old female with chronic cervical and lumbar spinal pain here with a concern for radiculopathy. Patient needs an MRI to evaluate but I doubt cauda equina acutely today. Patient found great relief with ketorolac as well as [place] here in the emergency department. [facility] not had any narcotic use prescribed in the last 10 to 12 years. However patient did bring a bottle of Dilaudid with her today here in the emergency department from 11 years ago. Patient states has not taken that medication currently. She did have the time to make the appointment to see her neurosurgeon and on Monday. At this time I doubt lumbar compression fracture or any sign of cervical collapse that may be causing retropulsion of the disc. I doubt discitis. Patient has been prescribed 2 days of [place] and recommend anti-inflammatories and outpatient follow-up for evaluation by neurosurgery of record. I have also encouraged patient to seek out pain management for chronic narcotic evaluation.. Administered Medications: 15:10 Drug: Ketorolac IM 60 mg IM once Route: IM; Site: left gluteus; me1 15:30 Follow up: Response: No adverse reaction; Pain is decreased me1 15:10 Drug: HYDROcodone-acetaminophen PO 5 mg-325 mg 1 tabs PO once Route: PO; me1 15:30 Follow up: Response: No adverse reaction; Pain is decreased me1 Disposition Summary: 10/23/23 16:23 Discharge Ordered Notes: Location: Home gb1 Condition: Stable gb1 Diagnosis - Low back pain gb1 Discharge Instructions: - Discharge Summary Sheet gb1 - Chronic Back Pain gb1 Forms: - Medication Reconciliation Form gb1 - Antibiotic Education gb1 - Prescription Opioid Use gb1 - Patient Portal Instructions gb1 - Leadership Thank You Letter gb1 Prescriptions: - Hydrocodone-Acetaminophen 5-325 mg Oral Tablet - take 1 tablet ORAL route every 6 hours As needed; 12 tablet; Refills: 0, gb1 Product Selection Permitted Signatures: Catie Marte RN RN cm10 Erin Egan RN RN me1 Nancy Marcos MD MD gb1
--- NOTE | 2023-10-23 16:23 | ER ---
Nurse's Notes [facility] Name: Juliann Cobian Age: 53 yrs Sex: Female : 1970 Arrival Date: 10/23/2023 Time: 14:06 Bed 15 Private MD: Diagnosis: Low back pain Presentation: 10/22 14:26 Chief complaint: Patient states: Pt reports low back pain intermittent for a few months cm10 that got worse 3 days ago. Coronavirus screen: Client denies travel out of the [place] in the last 14 days. Ebola Screen: Patient denies travel to an Ebola-affected area in the 21 days before illness onset. No symptoms or risks identified at this time. Initial Sepsis Screen: Does the patient meet any 2 criteria? No. Patient's initial sepsis screen is negative. Does the patient have a suspected source of infection? No. Patient's initial sepsis screen is negative. Risk Assessment: Do you want to hurt yourself or someone else? Patient reports no desire to harm self or others. Onset of symptoms was October 23, 2023. 14:26 Method Of Arrival: Ambulatory cm10 14:26 Acuity: ASHLEY 4 cm10 Triage Assessment: 14:28 General: Appears in no apparent distress. uncomfortable, Behavior is calm, cooperative. cm10 Pain: Complains of pain in back Pain does not radiate. Pain currently is 10. out of 10 on a pain scale. Neuro: No deficits noted. Level of Consciousness is awake, alert, obeys commands, Oriented to person, place, time, situation, Appropriate for age. Respiratory: No deficits noted. Airway is patent Respiratory effort is even, unlabored, Respiratory pattern is regular, symmetrical. 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 - Infectious Disease History:: Denies. - Social history:: Smoking status: Patient reports the use of cigarette tobacco products, smokes one-half pack cigarettes per day. Screenin:[facility] ED Fall Risk Assessment (Adult) History of falling in the last 3 months, me1 including since admission No falls in past 3 months (0 pts) Confusion or Disorientation No (0 pts) Intoxicated or Sedated No (0 pts) Impaired Gait No (0 pts) Mobility Assist Device Used No (0 pt) Altered Elimination No (0 pt) Score/Fall Risk Level 0 - 2 = Low Risk Maintained a safe environment, Provided non-skid footwear, Hourly rounding (assess needs \T\ fall precautionary measures) done. Abuse screen: Denies threats or abuse. Nutritional screening: No deficits noted. Tuberculosis screening: No symptoms or risk factors identified. Assessment: 14:52 General: Appears uncomfortable, well groomed, well developed, well nourished, Behavior me1 is calm, cooperative, appropriate for age, Reports Pt reports low back pain intermittent for a few months that got worse 3 days ago. Pain: Complains of pain in back Pain does not radiate. Pain currently is 9 out of 10 on a pain scale. Quality of pain is described as sharp, Pain began Is continuous. Neuro: Level of Consciousness is awake, alert, obeys commands, Oriented to person, place, time, situation, Appropriate for age. Cardiovascular: Patient's skin is warm and dry. Respiratory: Airway is patent Respiratory effort is even, unlabored, Respiratory pattern is regular, symmetrical. GI: No signs and/or symptoms were reported involving the gastrointestinal system. : No signs and/or symptoms were reported regarding the genitourinary system. EENT: No signs and/or symptoms were reported regarding the EENT system. Derm: Skin is intact, is healthy with good turgor, Skin is pink, warm \T\ dry. Musculoskeletal: No signs and/or symptoms reported regarding the musculoskeletal system. Vital Signs: 14:26 BP 142 / 94; Pulse 79; Resp 16; Temp 96.9(IR); Pulse Ox 98% on R/A; Weight 108.41 kg; cm10 Height 5 ft. 7 in. ; Pain 10/10; 15:00 BP 120 / 73; Pulse 69; Resp 16; Pulse Ox 98% ; me1 16:00 BP 140 / 77; Pulse 74; Resp 15; Temp 98.1; Pulse Ox 99% ; me1 14:26 Body Mass Index 37.43 (108.41 kg, 170.18 cm) cm10 14:26 Pain Scale: Adult cm10 ED Course: 14:09 Patient arrived in ED. im 14:19 Nancy Marcos MD is Attending Physician. gb1 14:27 Triage completed. cm10 14:28 Arm band placed on Patient placed in an exam room, on a stretcher. cm10 14:44 Erin Egan, RN is Primary Nurse. me1 14:52 Patient has correct armband on for positive identification. Bed in low position. Call me1 light in reach. Side rails up X 1. Provided Education on: POC. Verbalized understanding. . Client placed on continuous cardiac and pulse oximetry monitoring. NIBP monitoring applied. Pulse ox on. NIBP on. 14:52 No provider procedures requiring assistance completed. me1 16:41 Patient did not have IV access during this emergency room visit. me1 Administered Medications: 15:10 Drug: Ketorolac IM 60 mg IM once Route: IM; Site: left gluteus; me1 15:30 Follow up: Response: No adverse reaction; Pain is decreased me1 15:10 Drug: HYDROcodone-acetaminophen PO 5 mg-325 mg 1 tabs PO once Route: PO; me1 15:30 Follow up: Response: No adverse reaction; Pain is decreased me1 Medication: 14:52 VIS not applicable for this client. me1 Outcome: 16:23 Discharge ordered by . gb1 16:41 Discharged to home ambulatory, with significant other, me1 16:41 Condition: stable 16:41 Discharge instructions given to patient, significant other, Instructed on discharge instructions, follow up and referral plans. medication usage, Demonstrated understanding of instructions, follow-up care, medications, Prescriptions given X 1, 16:42 Patient left the ED. me1 Signatures: Millicent Hernandez Clarissa RN RN cm10 Erin Egan, RN RN me1 Nancy Marcos MD MD gb1 Corrections: (The following items were deleted from the chart) 14:52 14:26 Chief complaint: Patient states: Pt reports low back pain intermittent for a few me1 months that got worse 3 days ago. cm10 18:54 18:53 Response: No adverse reaction; Pain is decreased me1 me1
[2023-10-23 17:22] VITALS: BP 140/77; TEMP 98.1; O2SAT 99
== END 2023-10-23 16:42 | disposition home or self-care (01) ==
LOC: ER 14:06
DX: M54.50 Low back pain, unspecified (principal); F17.210 Nicotine dependence, cigarettes, uncomplicated
CPT/HCPCS: 96372; 99284